=== PATIENT | female | born 1980 | race Caucasian/White ===

== ENCOUNTER 2025-03-16 18:57 | Inpatient (IN) | payer MEDICARE, MEDICAID ==
[~2025-03-16] VITALS: Ht 162.6 cm; Wt 113.5 kg
[~2025-03-16 18:57] MED LIST: ETOMIDATE 2MG/ML 10ML VIAL IV ONE
[2025-03-16] MEDS: PIPERACILLIN/TAZO 3.375G/50ML 50 ML IV ONE (20:01)
[2025-03-16 20:05] LABS: HEMATOCRIT. 26.7 % (36.0-48.0); HEMOGLOBIN. 8.9 g/dL (12.0-16.0); MEAN CORPUSCULAR HEMOGLOBIN 33.3 pg (28.0-32.0); MEAN CORPUSCULAR HGB CONC 33.3 g/dL (31.0-37.0); MEAN CORPUSCULAR VOLUME 100.2 fL (81.0-99.0); MEAN PLATELET VOLUME 9.3 fl (7.4-10.4); PLATELET 127 x1000/uL (130-400); RED BLOOD CELL COUNT 2.66 mill/uL (4.2-5.4); RED CELL DISTRIBUTION WIDTH 17.2 % (11.6-14.6); WHITE BLOOD COUNT 13.6 x1000/uL (4.5-11.0)
[2025-03-16 20:14] LABS: DIFFERENTIAL COMMENT 1
[2025-03-16 20:15] LABS: CARBON DIOXIDE 22 mEq/L (21-32); CHLORIDE 87 mEq/L (98-107); POTASSIUM 4.8 mEq/L (3.5-5.1); SODIUM 129 mEq/L (136-145)
[2025-03-16 20:16] LABS: CALCIUM 8.8 mg/dL (8.7-10.4)
[2025-03-16 20:21] LABS: ETHANOL BLOOD < 10 mg/dL (<10); UREA NITROGEN BLOOD 88 mg/dL (9-23)
[2025-03-16 20:22] LABS: ALANINE AMINOTRANSFERASE 21 IU/L (10-49); ALBUMIN 4.1 g/dL (3.2-4.8); ASPARTATE AMINOTRANSFERASE 42 IU/L (<34)
[2025-03-16 20:23] LABS: BILIRUBIN DIRECT 0.2 mg/dL (<=3.0); BILIRUBIN TOTAL 0.5 mg/dL (0.1-1.0); PROTEIN TOTAL 7.6 g/dL (6.0-8.3)
[2025-03-16 20:24] LABS: HCG SCREEN NEGATIVE
[2025-03-16 20:35] LABS: ANISOCYTOSIS 1+; GIANT PLATELETS FEW; PLATELET ESTIMATE NORMAL
[2025-03-16 20:41] LABS: BG BASE EXCESS -3.8 mmol/L (-2.0-3.0); BG CARBOXYHEMOGLOBIN 1.9 % (0.5-1.5); BG DEOXYHEMOGLOBIN 20.1 % (0.0-5.0); BG FRACTION INSPIRED OXYGEN 21; BG HCO3 ACT 18.9 mmol/L (21.0-28.0); BG METHEMOGLOBIN 0.3 % (0.5-1.5); BG OXYGEN SATURATION 79.4 % (94.0-98.0); BG OXYHEMOGLOBIN 77.7 % (94.0-98.0); BG PH 7.448 (7.350-7.450); BG PO2 43.6 mmHg (83.0-108.0); BG SAMPLE SITE RIGHT RADIAL; BG TOTAL HEMOGLOBIN 12.7 g/dL (12.0-16.0); BG VENT MODE ROOM AIR
[2025-03-16] MEDS: VANCOMYCIN 1G PREMIX 200 ML IV ONE (20:54)
[2025-03-16 21:09] LABS: LACTIC ACID 3.5 mmol/L (0.4-2.0)
[2025-03-16 21:15] LABS: INR 1.3; PROTHROMBIN TIME 13.2 sec (9.6-11.0)
[2025-03-16 21:25] LABS: CREATININE 11.6 mg/dL (0.6-1.0); GLUCOSE 410 mg/dL (70-105)
[2025-03-16 21:26] LABS: TROPONIN I HIGH SENSITIVITY 115 ng/L (3.0-34)
[2025-03-16 21:54] LABS: BETA HYDROXYBUTYRATE 0.3 mMol/L (0.0-0.3)
[2025-03-16] MEDS: INSULIN REGULAR (HUMULIN R) 1000UNITS/10ML VIAL SUBCUT ONE (22:12)
[2025-03-16] MEDS: ACETAMINOPHEN 1000MG/100ML 100 ML IV ONE (22:13)
[2025-03-16] MEDS: HYDRALAZINE 20MG/ML VIAL IV ONE (22:13)
[2025-03-16] MEDS: DILTIAZEM HCL 5MG/ML 5ML VIAL IV ONE (22:13)
[2025-03-16] MEDS ORDERED: DEXTROSE 50% WATER 50ML SYRINGE IV PRN ×2 (22:30→23:45)
[2025-03-16] MEDS: SUCCINYLCHOLINE CHLORIDE 200MG/10ML IV ONE (22:57)
[2025-03-16] MEDS: ETOMIDATE 2MG/ML 10ML VIAL IV ONE (22:57)
[2025-03-16 22:58] VITALS: PULSE 177; RESP 35; O2SAT 97
[2025-03-16] MEDS ORDERED: MIDAZOLAM HCL 100 MG in DEXT 5% WATER 80 ML IV ONE (23:00)
[2025-03-16] MEDS ORDERED: FENTANYL 2500MCG/250ML PMX 250 ML IV ONE (23:00)
[2025-03-16] MEDS ORDERED: MIDAZOLAM HCL 2 MG/2 ML VIAL ONE ×2 (23:07→23:08)
[2025-03-16] MEDS: ETOMIDATE 2MG/ML 10ML VIAL IV NR (23:10)
[2025-03-16] MEDS: MIDAZOLAM HCL 2 MG/2 ML VIAL IV NR (23:10)
[2025-03-16] MEDS ORDERED: DEXMEDETOMIDINE 400 MCG/100 ML 100 ML IV PRN (23:30)
[2025-03-16] MEDS: MIDAZOLAM 100MG/100ML PMX 100 ML IV NR (23:49)
[2025-03-16] MEDS: FENTANYL 2500MCG/250ML PMX 250 ML IV NR (23:53)
[2025-03-17] VITALS (86 sets, daily range): BP systolic 77–168; BP diastolic 45–104; PULSE 89–125; RESP 16–30; TEMP 36.9–37.5; O2SAT 97–100
[2025-03-17 01:06] LABS: BG BASE EXCESS -4.6 mmol/L (-2.0-3.0); BG CARBOXYHEMOGLOBIN 0.8 % (0.5-1.5); BG DEOXYHEMOGLOBIN 0.3 % (0.0-5.0); BG FRACTION INSPIRED OXYGEN 100; BG HCO3 ACT 18.9 mmol/L (21.0-28.0); BG METHEMOGLOBIN 0.2 % (0.5-1.5); BG OXYGEN SATURATION 99.7 % (94.0-98.0); BG OXYHEMOGLOBIN 98.7 % (94.0-98.0); BG PH 7.431 (7.350-7.450); BG PO2 269.4 mmHg (83.0-108.0); BG SAMPLE SITE LEFT RADIAL; BG TOTAL RESPIRATORY RATE 31 b/min; BG VENT MODE VENT - AC
[2025-03-17] MEDS ORDERED: MIDAZOLAM 100MG/100ML PMX 100 ML IV PRN (03:00)
[2025-03-17] MEDS ORDERED: FENTANYL 2500MCG/250ML PMX 250 ML IV PRN (03:00)
[2025-03-17] MEDS: BLOOD SUGAR DIAGNOSTIC STRIP TEST SCH ×2 (03:56→17:08)
[2025-03-17] MEDS: INSULIN LISPRO 100 UNITS/ML SUBCUT SCH (03:57)
[2025-03-17 04:01] LABS: INFLUENZA TYPE A Presumptive Negative (Pres. Neg.); INFLUENZA TYPE B Presumptive Negative (Pres. Neg.)
[2025-03-17 04:02] LABS: RESPIRATORY SYNCYTIAL VIRUS Not Detected (Not Detectd)
[2025-03-17 06:03] LABS: HEMATOCRIT. 25.5 % (36.0-48.0); HEMOGLOBIN. 8.4 g/dL (12.0-16.0); MEAN CORPUSCULAR HEMOGLOBIN 33.2 pg (28.0-32.0); MEAN CORPUSCULAR VOLUME 100.5 fL (81.0-99.0); MEAN PLATELET VOLUME 10.7 fl (7.4-10.4); PLATELET 72 x1000/uL (130-400); RED BLOOD CELL COUNT 2.54 mill/uL (4.2-5.4); RED CELL DISTRIBUTION WIDTH 17.2 % (11.6-14.6); WHITE BLOOD COUNT 15.5 x1000/uL (4.5-11.0)
[2025-03-17 06:25] LABS: AMMONIA 21 uMol/L (<32); CARBON DIOXIDE 22 mEq/L (21-32); CHLORIDE 89 mEq/L (98-107); CREATINE KINASE MB FRACTION 0.8 ng/mL (0.5-3.6); POTASSIUM 3.7 mEq/L (3.5-5.1); SODIUM 132 mEq/L (136-145)
[2025-03-17 06:26] LABS: CALCIUM 8.6 mg/dL (8.7-10.4)
[2025-03-17 06:28] LABS: DIFFERENTIAL COMMENT 1; LACTIC ACID 3.8 mmol/L (0.4-2.0)
[2025-03-17 06:30] LABS: GLUCOSE 295 mg/dL (70-105)
[2025-03-17 06:31] LABS: LDL CHOLESTEROL 16 mg/dL (5-100); TRIGLYCERIDE 398 mg/dL (0-150); UREA NITROGEN BLOOD 91 mg/dL (9-23)
[2025-03-17 06:33] LABS: CHOLESTEROL 119 mg/dL (<200); HDL CHOLESTEROL < 20 mg/dL (>65); T4 FREE 1.17 ng/dL (0.89-1.76)
[2025-03-17 06:34] LABS: THYROID STIMULATING HORMONE 1.62 uIU/mL (0.55-4.78)
[2025-03-17 06:41] LABS: VITAMIN B12 SERUM 276 pg/mL (211-911)
[2025-03-17 07:10] LABS: CREATININE 12.1 mg/dL (0.6-1.0)
[2025-03-17] MEDS: ACETAMINOPHEN 1000MG/100ML 100 ML IV NR (08:32)
[2025-03-17] MEDS: PIPERACILLIN/TAZO 3.375G/50ML 50 ML IV SCH (08:42)
[2025-03-17] MEDS: PANTOPRAZOLE SODIUM 40 MG/VIAL IV SCH (08:42)
[2025-03-17] MEDS: AZITHROMYCIN 500MG/250ML 250 ML IV SCH (08:42)
[2025-03-17] MEDS: SODIUM CHLORIDE 0.9% 500 ML IV ONE (08:43)
[2025-03-17] MEDS: HEPARIN 5000 UNITS/ML VIAL SUBCUT SCH (08:44)
[2025-03-17] MEDS: IPRATROPIUM/ALBUTEROL 0.5-3(2.5)MG/3ML NEB HHN SCH (08:45)
[2025-03-17] MEDS ORDERED: FUROSEMIDE 100MG/10ML VIAL IV SCH (09:00)
[2025-03-17] MEDS ORDERED: PHENYLEPHRINE 50MG/250ML PMX 250 ML IV PRN (09:15)
[2025-03-17] MEDS: PHENYLEPHRINE 50MG/250ML PMX IV PRN (09:34)
[2025-03-17] MEDS: DEXT 5%/0.9% NACL 1,000 ML IV SCH (09:36)
[2025-03-17] MEDS: VANCOMYCIN 1.25GM/250ML 250 ML IV SCH (09:39)
[2025-03-17] MEDS: INSULIN GLARGINE 100 UNITS/ML SUBCUT SCH (09:39)
[2025-03-17 10:04] LABS: CREATINE KINASE 96 IU/L (34-145)
[2025-03-17] MEDS ORDERED: LIDOCAINE HCL 1% 10 MG/ML 10ML VIAL ONE (10:29)
[2025-03-17 10:58] LABS: PLATELET ESTIMATE DECREASED; TOXIC VACUOLATION 1+
[2025-03-17 10:59] LABS: ANISOCYTOSIS 1+
[2025-03-17 11:41] LABS: HEPATITIS B SURFACE ANTIGEN NEGATIVE (Negative)
[2025-03-17 12:02] LABS: HEPATITIS A AB IGM NEGATIVE (Negative)
[2025-03-17 12:03] LABS: HEPATITIS B CORE AB IGM NEGATIVE (Negative); HEPATITIS C AB NON REACTIVE (Neg) (Negative)
[2025-03-17] MEDS ORDERED: DEXTROSE 50% WATER 50ML SYRINGE IV PRN (15:30)
[2025-03-17 16:04] LABS: CREATINE KINASE MB FRACTION 1.9 ng/mL (0.5-3.6)
[2025-03-17 20:09] LABS: POTASSIUM 3.7 mEq/L (3.5-5.1)
[2025-03-17 20:11] LABS: CALCIUM 8.6 mg/dL (8.7-10.4)
[2025-03-17 20:37] LABS: CREATININE 9.1 mg/dL (0.6-1.0)
[2025-03-17 21:05] LABS: BG CARBOXYHEMOGLOBIN 1.1 % (0.5-1.5); BG DEOXYHEMOGLOBIN 1.7 % (0.0-5.0); BG FRACTION INSPIRED OXYGEN 40; BG HCO3 ACT 21.8 mmol/L (21.0-28.0); BG METHEMOGLOBIN 0.2 % (0.5-1.5); BG OXYGEN SATURATION 98.3 % (94.0-98.0); BG PCO2 33.1 mmHg (32.0-45.0); BG PH 7.436 (7.350-7.450); BG PO2 107.4 mmHg (83.0-108.0); BG SAMPLE SITE LEFT RADIAL; BG TOTAL HEMOGLOBIN 8.9 g/dL (12.0-16.0); BG TOTAL RESPIRATORY RATE 25 b/min; BG VENT MODE VENT - SIMV
[2025-03-17] MEDS: ACETAMINOPHEN 325MG TABLET PO PRN (21:06)
[2025-03-17] MEDS: EPOETIN ALFA-EPBX 4,000 UNIT/ML VIAL SUBCUT SCH (21:07)
[2025-03-18] VITALS (119 sets, daily range): BP systolic 64–174; BP diastolic 34–108; PULSE 83–204; RESP 16–34; TEMP 97–101.7; O2SAT 99–100
[2025-03-18] MEDS: ADENOSINE 3 MG/ML 2ML VIAL IV NR ×2 (01:18→01:20)
[2025-03-18] MEDS: DEXMEDETOMIDINE 400 MCG/100 ML 100 ML IV PRN (01:32)
[2025-03-18] MEDS: METOPROLOL TARTRATE 5MG/5ML VIAL IV NR (01:32)
[2025-03-18] MEDS ORDERED: DILTIAZEM HCL 125 MG in DEXT 5% WATER 100 ML IV PRN (02:30)
[2025-03-18 03:00] LABS: CHLORIDE 93 mEq/L (98-107); POTASSIUM 3.3 mEq/L (3.5-5.1); SODIUM 132 mEq/L (136-145)
[2025-03-18 03:01] LABS: CALCIUM 8.9 mg/dL (8.7-10.4); CARBON DIOXIDE 20 mEq/L (21-32)
[2025-03-18 03:02] LABS: HEMATOCRIT. 27.7 % (36.0-48.0); HEMOGLOBIN. 9.1 g/dL (12.0-16.0); MEAN CORPUSCULAR HEMOGLOBIN 32.8 pg (28.0-32.0); MEAN CORPUSCULAR HGB CONC 32.8 g/dL (31.0-37.0); PLATELET 74 x1000/uL (130-400); RED BLOOD CELL COUNT 2.77 mill/uL (4.2-5.4); RED CELL DISTRIBUTION WIDTH 17.7 % (11.6-14.6)
[2025-03-18 03:06] LABS: DIFFERENTIAL COMMENT 1; GLUCOSE 226 mg/dL (70-105); UREA NITROGEN BLOOD 62 mg/dL (9-23)
[2025-03-18 03:08] LABS: ALANINE AMINOTRANSFERASE 45 IU/L (10-49); ALBUMIN 3.9 g/dL (3.2-4.8); ASPARTATE AMINOTRANSFERASE 64 IU/L (<34); BILIRUBIN DIRECT 0.3 mg/dL (<=3.0); BILIRUBIN TOTAL 0.7 mg/dL (0.1-1.0); PHOSPHORUS 4.3 mg/dL (2.5-4.9); PROTEIN TOTAL 7.1 g/dL (6.0-8.3)
[2025-03-18] MEDS: AMIODARONE 360MG/200ML 200 ML IV SCH ×2 (03:14→08:37)
[2025-03-18 04:03] LABS: CREATININE 8.9 mg/dL (0.6-1.0)
[2025-03-18] MEDS: KCL 20MEQ/100ML PREMIX 100 ML IV SCH (05:51)
[2025-03-18] MEDS: MAGNESIUM 2 G PREMIX 50 ML IV NR (05:51)
[2025-03-18] MEDS: POTASSIUM CHLORIDE 20MEQ/PACKET PO NR (06:46)
[2025-03-18] MEDS: BLOOD SUGAR DIAGNOSTIC STRIP TEST SCH (08:31)
[2025-03-18 09:56] LABS: ANISOCYTOSIS 1+; PLATELET ESTIMATE DECREASED
[2025-03-18] MEDS: ACETAMINOPHEN 325MG TABLET PO PRN (11:10)
[2025-03-18] MEDS ORDERED: LIDOCAINE HCL 1% 10 MG/ML 10ML VIAL ONE (12:43)
[2025-03-18] MEDS: SODIUM CHLORIDE 0.45% 1,000 ML IV SCH (15:11)
[2025-03-18] MEDS: LORAZEPAM 2MG/ML UD SYRINGE IV PRN (15:11)
[2025-03-18] MEDS: HYDRALAZINE 20MG/ML VIAL IV PRN (15:18)
[2025-03-18] MEDS: METOPROLOL TARTRATE 25MG TABLET PO SCH (20:57)
[2025-03-18] MEDS: INSULIN GLARGINE 100 UNITS/ML SUBCUT SCH (21:44)
[2025-03-19] VITALS (93 sets, daily range): BP systolic 114–185; BP diastolic 55–140; PULSE 75–107; RESP 0–30; TEMP 99.3–101.2; O2SAT 97–100
[2025-03-19 05:25] LABS: HEMATOCRIT. 24.4 % (36.0-48.0); HEMOGLOBIN. 8.1 g/dL (12.0-16.0); MEAN CORPUSCULAR HEMOGLOBIN 32.9 pg (28.0-32.0); MEAN CORPUSCULAR HGB CONC 33.1 g/dL (31.0-37.0); MEAN CORPUSCULAR VOLUME 99.4 fL (81.0-99.0); MEAN PLATELET VOLUME 10.6 fl (7.4-10.4); PLATELET 95 x1000/uL (130-400); RED BLOOD CELL COUNT 2.45 mill/uL (4.2-5.4); RED CELL DISTRIBUTION WIDTH 17.7 % (11.6-14.6); WHITE BLOOD COUNT 12.9 x1000/uL (4.5-11.0)
[2025-03-19 05:33] LABS: CARBON DIOXIDE 18 mEq/L (21-32); CHLORIDE 93 mEq/L (98-107); POTASSIUM 4.3 mEq/L (3.5-5.1); SODIUM 129 mEq/L (136-145)
[2025-03-19 05:39] LABS: GLUCOSE 172 mg/dL (70-105); UREA NITROGEN BLOOD 76 mg/dL (9-23)
[2025-03-19 05:40] LABS: ALANINE AMINOTRANSFERASE 32 IU/L (10-49); ALBUMIN 3.6 g/dL (3.2-4.8); ASPARTATE AMINOTRANSFERASE 24 IU/L (<34)
[2025-03-19 05:41] LABS: BILIRUBIN DIRECT 0.2 mg/dL (<=3.0); BILIRUBIN TOTAL 0.4 mg/dL (0.1-1.0); PHOSPHORUS 4.2 mg/dL (2.5-4.9); PROTEIN TOTAL 6.8 g/dL (6.0-8.3)
[2025-03-19 05:49] LABS: DIFFERENTIAL COMMENT 1
[2025-03-19 05:51] LABS: CREATININE 9.4 mg/dL (0.6-1.0)
[2025-03-19 06:04] LABS: ERYTHROCYTE SEDIMENTATION RATE > 140 mm/hr (0-20)
[2025-03-19] MEDS ORDERED: BLOOD SUGAR DIAGNOSTIC STRIP TEST SCH ×2 (08:00→09:00)
[2025-03-19 08:36] LABS: ATYPICAL LYMPHOCYTES 1; PLATELET ESTIMATE DECREASED
[2025-03-19 08:38] LABS: ANISOCYTOSIS 1+
[2025-03-19] MEDS ORDERED: INSULIN LISPRO 100 UNITS/ML SUBCUT SCH (09:00)
[2025-03-19] MEDS: CLONIDINE 0.1MG TABLET PO SCH (09:58)
[2025-03-19] MEDS: AMIODARONE 200MG TABLET NG SCH (09:59)
[2025-03-19] MEDS: BLOOD SUGAR DIAGNOSTIC STRIP TEST SCH (11:48)
[2025-03-19] MEDS: INSULIN LISPRO 100 UNITS/ML SUBCUT SCH (12:07)
[2025-03-19] MEDS: CEFAZOLIN 2GM/100ML 100 ML IV SCH (15:27)
[2025-03-19] MEDS: FOLIC ACID/VITAMIN B COMP W-C TABLET PO SCH (17:59)
[2025-03-19] MEDS: METOPROLOL TARTRATE 50MG TABLET PO SCH (20:11)
[2025-03-20] VITALS (63 sets, daily range): BP systolic 86–164; BP diastolic 55–93; PULSE 66–95; RESP 8–27; TEMP 36.8–37.55856; O2SAT 96–100
[2025-03-20 06:56] LABS: HEMATOCRIT. 23.3 % (36.0-48.0); HEMOGLOBIN. 7.9 g/dL (12.0-16.0); MEAN CORPUSCULAR HGB CONC 33.7 g/dL (31.0-37.0); MEAN PLATELET VOLUME 9.7 fl (7.4-10.4); PLATELET 128 x1000/uL (130-400); RED BLOOD CELL COUNT 2.38 mill/uL (4.2-5.4); RED CELL DISTRIBUTION WIDTH 17.5 % (11.6-14.6); WHITE BLOOD COUNT 13.4 x1000/uL (4.5-11.0)
[2025-03-20 07:09] LABS: DIFFERENTIAL COMMENT 1
[2025-03-20 07:12] LABS: CARBON DIOXIDE 15 mEq/L (21-32); CHLORIDE 90 mEq/L (98-107); POTASSIUM 4.5 mEq/L (3.5-5.1); SODIUM 127 mEq/L (136-145)
[2025-03-20 07:13] LABS: CALCIUM 9.3 mg/dL (8.7-10.4)
[2025-03-20] MEDS ORDERED: LIDOCAINE HCL 1% 10 MG/ML 10ML VIAL ONE (07:16)
[2025-03-20 07:17] LABS: GLUCOSE 123 mg/dL (70-105); PROTEIN TOTAL 6.9 g/dL (6.0-8.3)
[2025-03-20 07:18] LABS: UREA NITROGEN BLOOD 88 mg/dL (9-23)
[2025-03-20 07:19] LABS: ALANINE AMINOTRANSFERASE 17 IU/L (10-49); ALBUMIN 3.7 g/dL (3.2-4.8); ASPARTATE AMINOTRANSFERASE 12 IU/L (<34); CREATINE KINASE 27 IU/L (34-145)
[2025-03-20 07:20] LABS: BILIRUBIN DIRECT 0.2 mg/dL (<=3.0); BILIRUBIN TOTAL 0.3 mg/dL (0.1-1.0); PHOSPHORUS 6.3 mg/dL (2.5-4.9)
[2025-03-20 07:24] LABS: CREATININE 10.1 mg/dL (0.6-1.0)
[2025-03-20 08:55] LABS: BG BASE EXCESS -8.1 mmol/L (-2.0-3.0); BG CARBOXYHEMOGLOBIN 1.1 % (0.5-1.5); BG DEOXYHEMOGLOBIN 0.5 % (0.0-5.0); BG FRACTION INSPIRED OXYGEN 40; BG HCO3 ACT 15.9 mmol/L (21.0-28.0); BG METHEMOGLOBIN 0.1 % (0.5-1.5); BG OXYGEN SATURATION 99.5 % (94.0-98.0); BG OXYHEMOGLOBIN 98.3 % (94.0-98.0); BG PCO2 27.4 mmHg (32.0-45.0); BG PH 7.381 (7.350-7.450); BG PO2 153.9 mmHg (83.0-108.0); BG SAMPLE SITE RIGHT RADIAL; BG TOTAL HEMOGLOBIN 9.8 g/dL (12.0-16.0); BG VENT MODE VENT - SIMV
[2025-03-20 10:52] LABS: PLATELET ESTIMATE SLIGHTLY DECREASED
[2025-03-20 10:53] LABS: ANISOCYTOSIS 1+; HYPOCHROMASIA 1+
[2025-03-21] VITALS (55 sets, daily range): BP systolic 103–170; BP diastolic 48–91; PULSE 76–97; RESP 12–34; TEMP 98.6–101.3; O2SAT 93–100
[2025-03-21 05:50] LABS: HEMOGLOBIN. 7.5 g/dL (12.0-16.0); MEAN CORPUSCULAR HEMOGLOBIN 33.4 pg (28.0-32.0); MEAN CORPUSCULAR HGB CONC 34.1 g/dL (31.0-37.0); MEAN CORPUSCULAR VOLUME 97.9 fL (81.0-99.0); MEAN PLATELET VOLUME 9.8 fl (7.4-10.4); PLATELET 127 x1000/uL (130-400); RED BLOOD CELL COUNT 2.24 mill/uL (4.2-5.4); RED CELL DISTRIBUTION WIDTH 17.5 % (11.6-14.6); WHITE BLOOD COUNT 10.2 x1000/uL (4.5-11.0)
[2025-03-21 06:01] LABS: CHLORIDE 94 mEq/L (98-107); POTASSIUM 3.3 mEq/L (3.5-5.1); SODIUM 133 mEq/L (136-145)
[2025-03-21 06:04] LABS: CALCIUM 8.8 mg/dL (8.7-10.4); CARBON DIOXIDE 20 mEq/L (21-32)
[2025-03-21 06:06] LABS: UREA NITROGEN BLOOD 62 mg/dL (9-23)
[2025-03-21 06:09] LABS: ALANINE AMINOTRANSFERASE < 7 IU/L (10-49); GLUCOSE 183 mg/dL (70-105)
[2025-03-21 06:11] LABS: ALBUMIN 3.6 g/dL (3.2-4.8); ASPARTATE AMINOTRANSFERASE 12 IU/L (<34); BILIRUBIN DIRECT 0.2 mg/dL (<=3.0)
[2025-03-21 06:12] LABS: BILIRUBIN TOTAL 0.3 mg/dL (0.1-1.0); CREATININE 7.1 mg/dL (0.6-1.0); PROTEIN TOTAL 6.8 g/dL (6.0-8.3)
[2025-03-21 06:18] LABS: DIFFERENTIAL COMMENT 1
[2025-03-21] MEDS: POTASSIUM CHLORIDE 20MEQ TABLET SR PO NR (07:32)
[2025-03-21] MEDS: POTASSIUM CHLORIDE 20MEQ/PACKET PO NR (09:01)
[2025-03-21 09:43] LABS: ANISOCYTOSIS 2+; PLATELET ESTIMATE NORMAL
[2025-03-21 11:17] LABS: BG BASE EXCESS -2.6 mmol/L (-2.0-3.0); BG CARBOXYHEMOGLOBIN 1.5 % (0.5-1.5); BG DEOXYHEMOGLOBIN 0.7 % (0.0-5.0); BG FRACTION INSPIRED OXYGEN 40; BG HCO3 ACT 20.9 mmol/L (21.0-28.0); BG METHEMOGLOBIN 0.3 % (0.5-1.5); BG OXYGEN SATURATION 99.3 % (94.0-98.0); BG OXYHEMOGLOBIN 97.5 % (94.0-98.0); BG PCO2 31.1 mmHg (32.0-45.0); BG PH 7.446 (7.350-7.450); BG PO2 141.8 mmHg (83.0-108.0); BG SAMPLE SITE RIGHT RADIAL; BG TOTAL HEMOGLOBIN 8.2 g/dL (12.0-16.0); BG VENT MODE VENT - CPAP
[2025-03-21] MEDS: ACETAMINOPHEN 650MG/20.3ML UDC PO PRN (13:25)
[2025-03-21] MEDS: INSULIN LISPRO 100 UNITS/ML SUBCUT SCH (21:00)
[2025-03-21] MEDS: BLOOD SUGAR DIAGNOSTIC STRIP TEST SCH (21:06)
[2025-03-22] VITALS (56 sets, daily range): BP systolic 103–165; BP diastolic 36–85; PULSE 75–94; RESP 12–43; TEMP 36.55848–37; O2SAT 87–100
[2025-03-22 05:25] LABS: MEAN CORPUSCULAR HEMOGLOBIN 32.7 pg (28.0-32.0); MEAN CORPUSCULAR HGB CONC 32.6 g/dL (31.0-37.0); MEAN CORPUSCULAR VOLUME 100.3 fL (81.0-99.0); MEAN PLATELET VOLUME 9.3 fl (7.4-10.4); PLATELET 196 x1000/uL (130-400); RED BLOOD CELL COUNT 2.04 mill/uL (4.2-5.4); RED CELL DISTRIBUTION WIDTH 17.7 % (11.6-14.6); WHITE BLOOD COUNT 12.1 x1000/uL (4.5-11.0)
[2025-03-22 05:44] LABS: CHLORIDE 93 mEq/L (98-107); POTASSIUM 3.9 mEq/L (3.5-5.1); SODIUM 131 mEq/L (136-145)
[2025-03-22 05:47] LABS: CARBON DIOXIDE 20 mEq/L (21-32)
[2025-03-22 05:48] LABS: CALCIUM 8.7 mg/dL (8.7-10.4)
[2025-03-22 05:51] LABS: UREA NITROGEN BLOOD 71 mg/dL (9-23)
[2025-03-22 05:53] LABS: ALANINE AMINOTRANSFERASE < 7 IU/L (10-49); GLUCOSE 84 mg/dL (70-105)
[2025-03-22 05:54] LABS: ALBUMIN 3.6 g/dL (3.2-4.8)
[2025-03-22 05:55] LABS: ASPARTATE AMINOTRANSFERASE 13 IU/L (<34); BILIRUBIN DIRECT 0.1 mg/dL (<=3.0); BILIRUBIN TOTAL 0.3 mg/dL (0.1-1.0); PHOSPHORUS 5.7 mg/dL (2.5-4.9); PROTEIN TOTAL 6.7 g/dL (6.0-8.3)
[2025-03-22 06:13] LABS: DIFFERENTIAL COMMENT 1; HEMOGLOBIN. 6.7 g/dL (12.0-16.0)
[2025-03-22 06:14] LABS: HEMATOCRIT. 20.5 % (36.0-48.0)
[2025-03-22 06:16] LABS: CREATININE 8.8 mg/dL (0.6-1.0)
[2025-03-22 09:08] LABS: ANISOCYTOSIS 1+; NUCLEATED RED BLOOD CELLS 1 /100 WBC; PLATELET ESTIMATE NORMAL
[2025-03-22 17:02] LABS: HEMATOCRIT 24.6 % (36.0-48.0); HEMOGLOBIN 8.1 g/dL (12.0-16.0)
[2025-03-22] MEDS: IPRATROPIUM/ALBUTEROL 0.5-3(2.5)MG/3ML NEB HHN SCH (19:01)
[2025-03-22 20:35] LABS: BG BASE EXCESS -6.7 mmol/L (-2.0-3.0); BG DEOXYHEMOGLOBIN 11.4 % (0.0-5.0); BG FRACTION INSPIRED OXYGEN 36; BG HCO3 ACT 16.8 mmol/L (21.0-28.0); BG METHEMOGLOBIN 0.3 % (0.5-1.5); BG OXYGEN SATURATION 88.4 % (94.0-98.0); BG OXYHEMOGLOBIN 87.3 % (94.0-98.0); BG PCO2 26.8 mmHg (32.0-45.0); BG PH 7.415 (7.350-7.450); BG PO2 56.4 mmHg (83.0-108.0); BG SAMPLE SITE RIGHT RADIAL; BG TOTAL HEMOGLOBIN 9.1 g/dL (12.0-16.0); BG VENT MODE NASAL CANNULA
[2025-03-22] MEDS: LORAZEPAM 2MG/ML UD SYRINGE IV SCH (21:32)
[2025-03-23] VITALS (72 sets, daily range): BP systolic 83–191; BP diastolic 20–115; PULSE 76–100; RESP 10–38; TEMP 36.7–37.1; O2SAT 92–100
[2025-03-23] MEDS ORDERED: IPRATROPIUM/ALBUTEROL 0.5-3(2.5)MG/3ML NEB HHN SCH
[2025-03-23] MEDS: IPRATROPIUM/ALBUTEROL 0.5-3(2.5)MG/3ML NEB HHN SCH (00:22)
[2025-03-23 05:12] LABS: HEMATOCRIT. 23.8 % (36.0-48.0); HEMOGLOBIN. 7.9 g/dL (12.0-16.0); MEAN CORPUSCULAR HEMOGLOBIN 31.9 pg (28.0-32.0); MEAN CORPUSCULAR HGB CONC 33.1 g/dL (31.0-37.0); MEAN CORPUSCULAR VOLUME 96.5 fL (81.0-99.0); MEAN PLATELET VOLUME 9.2 fl (7.4-10.4); PLATELET 245 x1000/uL (130-400); RED BLOOD CELL COUNT 2.46 mill/uL (4.2-5.4); RED CELL DISTRIBUTION WIDTH 18.5 % (11.6-14.6); WHITE BLOOD COUNT 14.5 x1000/uL (4.5-11.0)
[2025-03-23 05:15] LABS: CHLORIDE 93 mEq/L (98-107); POTASSIUM 4.2 mEq/L (3.5-5.1); SODIUM 129 mEq/L (136-145)
[2025-03-23 05:16] LABS: CALCIUM 8.8 mg/dL (8.7-10.4); CARBON DIOXIDE 17 mEq/L (21-32)
[2025-03-23 05:21] LABS: GLUCOSE 86 mg/dL (70-105); UREA NITROGEN BLOOD 77 mg/dL (9-23)
[2025-03-23 05:23] LABS: PHOSPHORUS 6.9 mg/dL (2.5-4.9)
[2025-03-23 06:27] LABS: DIFFERENTIAL COMMENT 1
[2025-03-23] MEDS: NOREPINEPHRINE 8MG/250ML PMX 250 ML IV PRN (08:13)
[2025-03-23 10:31] LABS: PLATELET ESTIMATE NORMAL
[2025-03-23 10:32] LABS: ANISOCYTOSIS 1+
[2025-03-23 10:35] LABS: HYPOCHROMASIA 1+
[2025-03-23] MEDS: MIDODRINE HCL 5MG TABLET PO SCH (13:21)
[2025-03-24] VITALS (88 sets, daily range): BP systolic 86–177; BP diastolic 27–100; PULSE 70–87; RESP 16–41; TEMP 36.6–37.3; O2SAT 78–100
[2025-03-24 06:09] LABS: HEMATOCRIT. 23.5 % (36.0-48.0); HEMOGLOBIN. 7.6 g/dL (12.0-16.0); MEAN CORPUSCULAR HGB CONC 32.3 g/dL (31.0-37.0); MEAN CORPUSCULAR VOLUME 99.2 fL (81.0-99.0); MEAN PLATELET VOLUME 8.9 fl (7.4-10.4); PLATELET 256 x1000/uL (130-400); RED BLOOD CELL COUNT 2.37 mill/uL (4.2-5.4); RED CELL DISTRIBUTION WIDTH 19.3 % (11.6-14.6); WHITE BLOOD COUNT 15.7 x1000/uL (4.5-11.0)
[2025-03-24 06:20] LABS: DIFFERENTIAL COMMENT 1
[2025-03-24 06:31] LABS: CHLORIDE 92 mEq/L (98-107); POTASSIUM 3.8 mEq/L (3.5-5.1); SODIUM 129 mEq/L (136-145)
[2025-03-24 06:32] LABS: CALCIUM 8.7 mg/dL (8.7-10.4); CARBON DIOXIDE 19 mEq/L (21-32)
[2025-03-24 06:37] LABS: GLUCOSE 132 mg/dL (70-105); UREA NITROGEN BLOOD 58 mg/dL (9-23)
[2025-03-24 07:00] LABS: CREATININE 8.3 mg/dL (0.6-1.0)
[2025-03-24 12:52] LABS: PLATELET ESTIMATE NORMAL
[2025-03-24 12:53] LABS: ANISOCYTOSIS 1+; ROULEAUX 1+
[2025-03-24] MEDS: MIDODRINE HCL 5MG TABLET PO SCH (13:28)
[2025-03-24 19:48] LABS: BG BASE EXCESS -3.2 mmol/L (-2.0-3.0); BG CARBOXYHEMOGLOBIN 1.4 % (0.5-1.5); BG FRACTION INSPIRED OXYGEN 45; BG HCO3 ACT 19.9 mmol/L (21.0-28.0); BG METHEMOGLOBIN 0.1 % (0.5-1.5); BG OXYGEN SATURATION 90.9 % (94.0-98.0); BG OXYHEMOGLOBIN 89.5 % (94.0-98.0); BG PCO2 28.4 mmHg (32.0-45.0); BG PH 7.464 (7.350-7.450); BG PO2 58.2 mmHg (83.0-108.0); BG SAMPLE SITE RIGHT RADIAL; BG TOTAL HEMOGLOBIN 8.2 g/dL (12.0-16.0); BG VENT MODE HIGH FLOW
[2025-03-25] VITALS (43 sets, daily range): BP systolic 14–149; BP diastolic 29–88; PULSE 74–89; RESP 16–41; TEMP 36.3–36.9; O2SAT 90–100
[2025-03-25 05:33] LABS: HEMATOCRIT. 23.4 % (36.0-48.0); HEMOGLOBIN. 7.4 g/dL (12.0-16.0); MEAN CORPUSCULAR HEMOGLOBIN 31.3 pg (28.0-32.0); MEAN CORPUSCULAR HGB CONC 31.5 g/dL (31.0-37.0); MEAN CORPUSCULAR VOLUME 99.1 fL (81.0-99.0); MEAN PLATELET VOLUME 8.5 fl (7.4-10.4); PLATELET 302 x1000/uL (130-400); RED BLOOD CELL COUNT 2.36 mill/uL (4.2-5.4); RED CELL DISTRIBUTION WIDTH 18.8 % (11.6-14.6); WHITE BLOOD COUNT 19.2 x1000/uL (4.5-11.0)
[2025-03-25 05:38] LABS: DIFFERENTIAL COMMENT 1
[2025-03-25 05:49] LABS: CHLORIDE 98 mEq/L (98-107); POTASSIUM 3.9 mEq/L (3.5-5.1); SODIUM 133 mEq/L (136-145)
[2025-03-25 05:50] LABS: CALCIUM 8.7 mg/dL (8.7-10.4); CARBON DIOXIDE 21 mEq/L (21-32)
[2025-03-25 05:55] LABS: GLUCOSE 131 mg/dL (70-105); UREA NITROGEN BLOOD 55 mg/dL (9-23)
[2025-03-25 05:57] LABS: PHOSPHORUS 6.3 mg/dL (2.5-4.9)
[2025-03-25 05:59] LABS: CREATININE 8.3 mg/dL (0.6-1.0)
[2025-03-25 06:00] LABS: THYROID STIMULATING HORMONE 2.38 uIU/mL (0.55-4.78)
[2025-03-25 08:10] LABS: ANISOCYTOSIS 2+; PLATELET ESTIMATE NORMAL
[2025-03-25] MEDS: METHYLPREDNISOLONE SOD SUCC 40MG/ML (ACT-O-VIAL) IV SCH (14:10)
[2025-03-25 17:48] LABS: HCG SCREEN NEGATIVE
[2025-03-25] MEDS ORDERED: IOHEXOL-300 100 ML BOTTLE ONE (23:06)
[2025-03-26] VITALS (18 sets, daily range): BP systolic 102–151; BP diastolic 43–78; PULSE 77–83; RESP 17–39; TEMP 36.4–36.9; O2SAT 95–100
[2025-03-26 06:25] LABS: HEMATOCRIT. 22.6 % (36.0-48.0); HEMOGLOBIN. 7.4 g/dL (12.0-16.0); MEAN CORPUSCULAR HEMOGLOBIN 32.3 pg (28.0-32.0); MEAN CORPUSCULAR HGB CONC 32.5 g/dL (31.0-37.0); MEAN CORPUSCULAR VOLUME 99.3 fL (81.0-99.0); MEAN PLATELET VOLUME 8.8 fl (7.4-10.4); PLATELET 222 x1000/uL (130-400); RED BLOOD CELL COUNT 2.28 mill/uL (4.2-5.4); RED CELL DISTRIBUTION WIDTH 18.6 % (11.6-14.6); WHITE BLOOD COUNT 12.2 x1000/uL (4.5-11.0)
[2025-03-26 06:35] LABS: DIFFERENTIAL COMMENT 1
[2025-03-26 06:45] LABS: CALCIUM 9.2 mg/dL (8.7-10.4); CARBON DIOXIDE 15 mEq/L (21-32); CHLORIDE 92 mEq/L (98-107); POTASSIUM 4.8 mEq/L (3.5-5.1)
[2025-03-26 06:51] LABS: UREA NITROGEN BLOOD 77 mg/dL (9-23)
[2025-03-26 07:06] LABS: SODIUM 125 mEq/L (136-145)
[2025-03-26 07:08] LABS: CREATININE 9.9 mg/dL (0.6-1.0); GLUCOSE 402 mg/dL (70-105)
[2025-03-26 10:22] LABS: PLATELET ESTIMATE NORMAL
[2025-03-26 10:23] LABS: ANISOCYTOSIS 2+; ROULEAUX 1+
[2025-03-26 10:47] LABS: BG BASE EXCESS -7.4 mmol/L (-2.0-3.0); BG CARBOXYHEMOGLOBIN 0.5 % (0.5-1.5); BG DEOXYHEMOGLOBIN 2.7 % (0.0-5.0); BG FRACTION INSPIRED OXYGEN 50; BG METHEMOGLOBIN 0.3 % (0.5-1.5); BG OXYGEN SATURATION 97.3 % (94.0-98.0); BG OXYHEMOGLOBIN 96.5 % (94.0-98.0); BG PCO2 25.2 mmHg (32.0-45.0); BG PH 7.421 (7.350-7.450); BG PO2 96.1 mmHg (83.0-108.0); BG SAMPLE SITE LEFT RADIAL; BG TOTAL HEMOGLOBIN 8.1 g/dL (12.0-16.0); BG VENT MODE HIGH FLOW
[2025-03-26] MEDS: CALCIUM CARBONATE 500MG TABLET CHEW PO SCH (14:28)
[2025-03-27] VITALS (28 sets, daily range): BP systolic 121–176; BP diastolic 43–80; PULSE 62–103; RESP 17–36; TEMP 36.4–37.00296; O2SAT 93–100
[2025-03-27] MEDS: INSULIN GLARGINE 100 UNITS/ML SUBCUT SCH (00:27)
[2025-03-27 06:29] LABS: MEAN CORPUSCULAR HGB CONC 32.1 g/dL (31.0-37.0); MEAN CORPUSCULAR VOLUME 99.8 fL (81.0-99.0); MEAN PLATELET VOLUME 9.2 fl (7.4-10.4); PLATELET 263 x1000/uL (130-400); RED BLOOD CELL COUNT 2.14 mill/uL (4.2-5.4); RED CELL DISTRIBUTION WIDTH 18.2 % (11.6-14.6)
[2025-03-27 06:43] LABS: CARBON DIOXIDE 15 mEq/L (21-32); CHLORIDE 91 mEq/L (98-107); POTASSIUM 4.5 mEq/L (3.5-5.1); SODIUM 126 mEq/L (136-145)
[2025-03-27 06:44] LABS: CALCIUM 9.4 mg/dL (8.7-10.4)
[2025-03-27 06:49] LABS: DIFFERENTIAL COMMENT 1; GLUCOSE 240 mg/dL (70-105); UREA NITROGEN BLOOD 95 mg/dL (9-23)
[2025-03-27 06:50] LABS: HEMATOCRIT. 21.3 % (36.0-48.0); HEMOGLOBIN. 6.8 g/dL (12.0-16.0)
[2025-03-27 07:07] LABS: PHOSPHORUS 9.7 mg/dL (2.5-4.9)
[2025-03-27 10:50] LABS: ANISOCYTOSIS 2+
[2025-03-27 10:52] LABS: HYPOCHROMASIA 1+; PLATELET ESTIMATE NORMAL
[2025-03-27 10:56] LABS: BG CARBOXYHEMOGLOBIN 0.7 % (0.5-1.5); BG DEOXYHEMOGLOBIN 1.7 % (0.0-5.0); BG FRACTION INSPIRED OXYGEN 45; BG HCO3 ACT 18.8 mmol/L (21.0-28.0); BG METHEMOGLOBIN 0.3 % (0.5-1.5); BG OXYGEN SATURATION 98.3 % (94.0-98.0); BG OXYHEMOGLOBIN 97.3 % (94.0-98.0); BG PCO2 27.8 mmHg (32.0-45.0); BG PH 7.449 (7.350-7.450); BG PO2 118.3 mmHg (83.0-108.0); BG SAMPLE SITE RIGHT RADIAL; BG TOTAL HEMOGLOBIN 11.5 g/dL (12.0-16.0); BG VENT MODE HIGH FLOW
[2025-03-27] MEDS: INSULIN LISPRO 100 UNITS/ML SUBCUT SCH (13:39)
[2025-03-27] MEDS: SEVELAMER CARBONATE 800 MG TABLET PO SCH (19:44)
[2025-03-27 20:58] LABS: HEMATOCRIT 24.9 % (36.0-48.0); HEMOGLOBIN 7.9 g/dL (12.0-16.0)
[2025-03-28] VITALS (12 sets, daily range): BP systolic 107–168; BP diastolic 47–110; PULSE 69–90; RESP 18–32; TEMP 36.3–36.7; O2SAT 95–100
[2025-03-28 00:06] LABS: HEMATOCRIT 24.3 % (36.0-48.0)
[2025-03-28 07:06] LABS: HEMATOCRIT. 23.6 % (36.0-48.0); HEMOGLOBIN. 7.8 g/dL (12.0-16.0); MEAN CORPUSCULAR HEMOGLOBIN 32.3 pg (28.0-32.0); MEAN CORPUSCULAR HGB CONC 32.9 g/dL (31.0-37.0); MEAN CORPUSCULAR VOLUME 98.1 fL (81.0-99.0); MEAN PLATELET VOLUME 8.9 fl (7.4-10.4); PLATELET 261 x1000/uL (130-400); RED BLOOD CELL COUNT 2.41 mill/uL (4.2-5.4); RED CELL DISTRIBUTION WIDTH 19.6 % (11.6-14.6); WHITE BLOOD COUNT 12.3 x1000/uL (4.5-11.0)
[2025-03-28 07:12] LABS: DIFFERENTIAL COMMENT 1
[2025-03-28 07:23] LABS: CHLORIDE 99 mEq/L (98-107); POTASSIUM 4.5 mEq/L (3.5-5.1); SODIUM 132 mEq/L (136-145)
[2025-03-28 07:25] LABS: CALCIUM 9.4 mg/dL (8.7-10.4); CARBON DIOXIDE 17 mEq/L (21-32)
[2025-03-28 07:29] LABS: UREA NITROGEN BLOOD 81 mg/dL (9-23)
[2025-03-28 07:31] LABS: ALANINE AMINOTRANSFERASE < 7 IU/L (10-49)
[2025-03-28 07:32] LABS: ALBUMIN 3.7 g/dL (3.2-4.8); BILIRUBIN DIRECT 0.1 mg/dL (<=3.0); PHOSPHORUS 7.4 mg/dL (2.5-4.9)
[2025-03-28 07:33] LABS: BILIRUBIN TOTAL 0.3 mg/dL (0.1-1.0); PROTEIN TOTAL 7.6 g/dL (6.0-8.3)
[2025-03-28 08:06] LABS: ASPARTATE AMINOTRANSFERASE < 8 IU/L (<34); CREATININE 9.6 mg/dL (0.6-1.0)
[2025-03-28 08:11] LABS: GLUCOSE 429 mg/dL (70-105)
[2025-03-28 10:44] LABS: ANISOCYTOSIS 2+; PLATELET ESTIMATE NORMAL
[2025-03-28 11:13] LABS: BG BASE EXCESS -10.1 mmol/L (-2.0-3.0); BG CARBOXYHEMOGLOBIN 0.9 % (0.5-1.5); BG DEOXYHEMOGLOBIN 7.4 % (0.0-5.0); BG FRACTION INSPIRED OXYGEN 40; BG HCO3 ACT 14.1 mmol/L (21.0-28.0); BG METHEMOGLOBIN 0.3 % (0.5-1.5); BG OXYGEN SATURATION 92.5 % (94.0-98.0); BG OXYHEMOGLOBIN 91.4 % (94.0-98.0); BG PCO2 25.5 mmHg (32.0-45.0); BG PH 7.362 (7.350-7.450); BG PO2 73.1 mmHg (83.0-108.0); BG SAMPLE SITE RIGHT RADIAL; BG TOTAL HEMOGLOBIN 7.8 g/dL (12.0-16.0); BG VENT MODE NASAL CANNULA
[2025-03-29] VITALS (19 sets, daily range): BP systolic 120–152; BP diastolic 48–107; PULSE 63–83; RESP 17–34; TEMP 36.3–36.9; O2SAT 92–100
[2025-03-29 06:49] LABS: HEMATOCRIT. 25.3 % (36.0-48.0); HEMOGLOBIN. 8.3 g/dL (12.0-16.0); MEAN CORPUSCULAR HEMOGLOBIN 32.2 pg (28.0-32.0); MEAN CORPUSCULAR HGB CONC 32.8 g/dL (31.0-37.0); MEAN CORPUSCULAR VOLUME 98.1 fL (81.0-99.0); MEAN PLATELET VOLUME 9.1 fl (7.4-10.4); PLATELET 247 x1000/uL (130-400); RED BLOOD CELL COUNT 2.57 mill/uL (4.2-5.4); WHITE BLOOD COUNT 14.9 x1000/uL (4.5-11.0)
[2025-03-29 06:54] LABS: CARBON DIOXIDE 17 mEq/L (21-32); CHLORIDE 100 mEq/L (98-107); POTASSIUM 4.7 mEq/L (3.5-5.1); SODIUM 134 mEq/L (136-145)
[2025-03-29 06:56] LABS: CALCIUM 9.3 mg/dL (8.7-10.4)
[2025-03-29 07:00] LABS: GLUCOSE 164 mg/dL (70-105); UREA NITROGEN BLOOD 100 mg/dL (9-23)
[2025-03-29 07:03] LABS: DIFFERENTIAL COMMENT 1
[2025-03-29 07:32] LABS: CREATININE 10.9 mg/dL (0.6-1.0)
[2025-03-29 07:37] LABS: PHOSPHORUS 8.4 mg/dL (2.5-4.9)
[2025-03-29 14:46] LABS: MICROCYTOSIS 1+; PLATELET ESTIMATE NORMAL
[2025-03-29 15:20] LABS: BG BASE EXCESS -1.7 mmol/L (-2.0-3.0); BG CARBOXYHEMOGLOBIN 1.6 % (0.5-1.5); BG DEOXYHEMOGLOBIN 5.2 % (0.0-5.0); BG FRACTION INSPIRED OXYGEN 28; BG HCO3 ACT 20.3 mmol/L (21.0-28.0); BG METHEMOGLOBIN 0.3 % (0.5-1.5); BG OXYGEN SATURATION 94.7 % (94.0-98.0); BG OXYHEMOGLOBIN 92.9 % (94.0-98.0); BG PCO2 26.4 mmHg (32.0-45.0); BG PH 7.504 (7.350-7.450); BG PO2 73.6 mmHg (83.0-108.0); BG SAMPLE SITE RIGHT RADIAL; BG VENT MODE NASAL CANNULA
[2025-03-29] MEDS: SEVELAMER CARBONATE 800 MG TABLET PO SCH (17:35)
[2025-03-30] VITALS (7 sets, daily range): BP systolic 112–139; BP diastolic 45–101; PULSE 65–71; RESP 17–24; TEMP 36–36.7; O2SAT 93–100
[2025-03-30 06:39] LABS: HEMATOCRIT. 24.1 % (36.0-48.0); HEMOGLOBIN. 7.9 g/dL (12.0-16.0); MEAN CORPUSCULAR HEMOGLOBIN 31.9 pg (28.0-32.0); MEAN CORPUSCULAR HGB CONC 32.8 g/dL (31.0-37.0); MEAN CORPUSCULAR VOLUME 97.5 fL (81.0-99.0); MEAN PLATELET VOLUME 9.1 fl (7.4-10.4); PLATELET 247 x1000/uL (130-400); RED BLOOD CELL COUNT 2.47 mill/uL (4.2-5.4); RED CELL DISTRIBUTION WIDTH 18.3 % (11.6-14.6); WHITE BLOOD COUNT 14.8 x1000/uL (4.5-11.0)
[2025-03-30 06:42] LABS: CARBON DIOXIDE 23 mEq/L (21-32); CHLORIDE 98 mEq/L (98-107); POTASSIUM 4.8 mEq/L (3.5-5.1); SODIUM 134 mEq/L (136-145)
[2025-03-30 06:48] LABS: GLUCOSE 199 mg/dL (70-105); UREA NITROGEN BLOOD 75 mg/dL (9-23)
[2025-03-30 06:50] LABS: PHOSPHORUS 6.2 mg/dL (2.5-4.9)
[2025-03-30 06:53] LABS: CREATININE 8.2 mg/dL (0.6-1.0)
[2025-03-30 07:35] LABS: DIFFERENTIAL COMMENT 1
[2025-03-30 12:12] LABS: BG BASE EXCESS -4.2 mmol/L (-2.0-3.0); BG CARBOXYHEMOGLOBIN 0.9 % (0.5-1.5); BG DEOXYHEMOGLOBIN 5.1 % (0.0-5.0); BG FRACTION INSPIRED OXYGEN 21; BG HCO3 ACT 18.4 mmol/L (21.0-28.0); BG METHEMOGLOBIN 0.3 % (0.5-1.5); BG OXYGEN SATURATION 94.8 % (94.0-98.0); BG OXYHEMOGLOBIN 93.7 % (94.0-98.0); BG PCO2 25.6 mmHg (32.0-45.0); BG PH 7.475 (7.350-7.450); BG PO2 77.9 mmHg (83.0-108.0); BG SAMPLE SITE RIGHT RADIAL; BG TOTAL HEMOGLOBIN 9.1 g/dL (12.0-16.0); BG VENT MODE ROOM AIR
[2025-03-30 13:18] LABS: ANISOCYTOSIS 2+; PLATELET ESTIMATE NORMAL
[2025-03-31] MEDS ORDERED: METHYLPREDNISOLONE SOD SUCC 40MG/ML (ACT-O-VIAL) IV NR (13:00)
== END 2025-03-30 16:10 | disposition left against medical advice (07) | DRG 870 ==
LOC: ER 18:57 → EDBEDREQ 19:39 → MICUNO 21:34 → EDBEDREQ 21:39 → EDBEDREQSVC 21:39 → ENRESERV 23:11 → ER 03-17 01:12 → 5EST 03-25 18:30
PROVIDERS: ADMIT Internal Medicine; ATTEND Internal Medicine
PROC: 5A1955Z Respiratory Ventilation, Greater than 96 Consecutive Hours (ICD-10-PCS; 2025-03-16)
PROC: 5A09357 Assistance with Respiratory Ventilation, Less than 24 Consecutive Hours, Continuous Positive Airway Pressure (ICD-10-PCS; principal; 2025-03-17)
PROC: 0BH17EZ Insertion of Endotracheal Airway into Trachea, Via Natural or Artificial Opening (ICD-10-PCS; 2025-03-17)
PROC: 02HV33Z Insertion of Infusion Device into Superior Vena Cava, Percutaneous Approach (ICD-10-PCS; 2025-03-17)
PROC: B548ZZA Ultrasonography of Superior Vena Cava, Guidance (ICD-10-PCS; 2025-03-17)
PROC: 5A1D70Z Performance of Urinary Filtration, Intermittent, Less than 6 Hours Per Day (ICD-10-PCS; 2025-03-17)
PROC: 06HY33Z Insertion of Infusion Device into Lower Vein, Percutaneous Approach (ICD-10-PCS; 2025-03-20)
PROC: B54BZZA Ultrasonography of Right Lower Extremity Veins, Guidance (ICD-10-PCS; 2025-03-20)
PROC: 5A1D70Z Performance of Urinary Filtration, Intermittent, Less than 6 Hours Per Day (ICD-10-PCS; 2025-03-20)
PROC: 5A0955A Assistance with Respiratory Ventilation, Greater than 96 Consecutive Hours, High Flow/Velocity Cannula (ICD-10-PCS; 2025-03-22)
PROC: 5A1D70Z Performance of Urinary Filtration, Intermittent, Less than 6 Hours Per Day (ICD-10-PCS; 2025-03-23)
PROC: 5A1D70Z Performance of Urinary Filtration, Intermittent, Less than 6 Hours Per Day (ICD-10-PCS; 2025-03-24)
PROC: 5A1D70Z Performance of Urinary Filtration, Intermittent, Less than 6 Hours Per Day (ICD-10-PCS; 2025-03-27)
PROC: 5A1D70Z Performance of Urinary Filtration, Intermittent, Less than 6 Hours Per Day (ICD-10-PCS; 2025-03-29)
DX: A41.01 Sepsis due to Methicillin susceptible Staphylococcus aureus (principal); G92.8 Other toxic encephalopathy; N18.6 End stage renal disease; R65.21 Severe sepsis with septic shock; J18.1 Lobar pneumonia, unspecified organism; J96.21 Acute and chronic respiratory failure with hypoxia; J85.1 Abscess of lung with pneumonia; I21.4 Non-ST elevation (NSTEMI) myocardial infarction; E87.1 Hypo-osmolality and hyponatremia; I13.2 Hypertensive heart and chronic kidney disease with heart failure and with stage 5 chronic kidney disease, or end stage renal disease; I76 Septic arterial embolism; E11.22 Type 2 diabetes mellitus with diabetic chronic kidney disease; E11.65 Type 2 diabetes mellitus with hyperglycemia; D53.9 Nutritional anemia, unspecified; I50.9 Heart failure, unspecified; Z99.2 Dependence on renal dialysis; D69.6 Thrombocytopenia, unspecified; D63.8 Anemia in other chronic diseases classified elsewhere; Z20.822 Contact with and (suspected) exposure to COVID-19; I48.91 Unspecified atrial fibrillation; E78.5 Hyperlipidemia, unspecified; E87.6 Hypokalemia; E78.1 Pure hyperglyceridemia; T38.0X5A Adverse effect of glucocorticoids and synthetic analogues, initial encounter; Z79.4 Long term (current) use of insulin; Z82.49 Family history of ischemic heart disease and other diseases of the circulatory system; Z53.29 Procedure and treatment not carried out because of patient's decision for other reasons
CPT/HCPCS: 31500; 36415; 36573; 36589; 36600; 71045; 71250; 71275; 74176; 76856; 76937; 80048; 80061; 80076; 80202; 80320; 82010; 82140; 82375; 82533; 82550; 82553; 82607; 82805; 82962; 83036; 83605; 83735; 83880; 84100; 84145; 84439; 84443; 84484; 84703; 85014; 85018; 85025; 85362; 85379; 85384; 85651; 86022; 86705; 86709; 86850; 86900; 86920; 87070; 87077; 87186; 87340; 87420; 87426; 87804; 90935; 92610; 93005; 93306; 93970; 93971; 94002; 94003; 94070; 94640; 94660; 94664; 97110; 97163; 97167; 97530; 98960; 99291; A4606; A6261; C1725; C1752; C1769; C1887; J0153; J0282; J0330; J0360; J0456; J0690; J0885; J1644; J1815; J2003; J2060; J2250; J2371; J2470; J2543; J2919; J3010; J3370; J3475; J3480; J3490; J7042; J7060; P9016; Q9967; G0480; J0131